=== PATIENT | female | born 1980 | race Caucasian/White ===

== ENCOUNTER 2018-11-30 02:46 | Inpatient (IN) | payer MEDICAID ==
[~2018-11-30] VITALS: Ht 162.6 cm; Wt 120.0 kg
[2018-11-30] MEDS ORDERED: ONDANSETRON 4 MG INJ IV ONE (03:33)
[2018-11-30] MEDS ORDERED: morphine 4 MG/ML VIAL IV ONE (03:33)
[2018-11-30] MEDS ORDERED: HYDR-4011 PO (04:59)
[2018-11-30] MEDS ORDERED: ONDA4TAB14 PO (04:59)
[2018-11-30] MEDS: ONDANSETRON 4 MG INJ IV ONE ×2 (05:12→07:13)
[2018-11-30] MEDS: morphine 4 MG/ML VIAL IV ONE ×2 (05:12→07:13)
[2018-11-30] MEDS ORDERED: SOD CHLORIDE 0.9% 1,000 ML IV ONE (05:30)
--- NOTE | 2018-11-30 05:42 | ERD ---
ER Documentation Chief Complaint Chief Complaint RUQ PAIN, S/P CHOLECYSTECTOMY; U/S YESTERDAY SHOWS STONES IN BILE DUCT HPI This is a 38-year-old female who presents for evaluation of right upper quadrant pain. Patient had a tonsillectomy about 11 years ago, yesterday she went to her outpatient physician and had an ultrasound that showed stones in the bile duct. She denies fever, endorses nausea, describes pain as sharp and intense. She has no shortness of breath ROS All systems reviewed and are negative except as per history of present illness. Medications Home Meds Reported Medications Hydrocodone/Acetaminophen ([place] 5-325 Tablet) 1 Each Tablet, 1 EACH PO DAILY NM N for PAIN LEVEL 1-5, TAB 11/30/18 Ondansetron (Ondansetron Odt) 4 Mg Tab.rapdis, 4 MG PO Q6H PRN for NAUSEA AND/OR VOMITING, TAB 11/30/18 Allergies Allergies: Coded Allergies: ketorolac (Verified Allergy, Unknown, 11/30/18) Uncoded Allergies: IV CONTRAST (Allergy, Unknown, 11/30/18) PMhx/Soc Medical and Surgical Hx: pt denies Medical Hx History of Surgery: Yes (GALLBLADDER REMOVAL, TUBAL LIGATION, OVARIAN TORSION) Anesthesia Reaction: No Hx Neurological Disorder: No Hx Respiratory Disorders: No Hx Cardiac Disorders: No Hx Psychiatric Problems: No Hx Miscellaneous Medical Probl: No Hx Alcohol Use: No Hx Substance Use: No Hx Tobacco Use: No Smoking Status: Never smoker Physical Exam Vitals Vital Signs Date Temp Pulse Resp B/P (MAP) Pulse Ox O2 O2 Flow FiO2 Time Delivery Rate 11/30/18 98.0 88 18 138/82 98 02:52 (100) Physical Exam Const: No acute distress Head: Atraumatic Eyes: Normal Conjunctiva ENT: Normal External Ears, Nose and Mouth. Neck: Full range of motion. No meningismus. Resp: Clear to auscultation bilaterally Cardio: Regular rate and rhythm, no murmurs Abd: Soft, tenderness over the right upper quadrant and epigastric area, there is no rebound or guarding, non distended. Normal bowel sounds Skin: No petechiae or rashes Back: No midline or flank tenderness Ext: No cyanosis, or edema Neur: Awake and alert Psych: Normal Mood and Affect Result Diagram: 11/30/18 0354 11/30/18 0354 Results 24 hrs Laboratory Tests Test 11/30/18 03:54 11/30/18 04:05 White Blood Count 9.3 10^3/ul Red Blood Count 4.22 10^6/ul Hemoglobin 11.7 g/dl Hematocrit 36.9 % Mean Corpuscular Volume 87.4 fl Mean Corpuscular Hemoglobin 27.7 pg Mean Corpuscular Hemoglobin Concent 31.7 g/dl Red Cell Distribution Width 14.6 % Platelet Count 363 10^3/UL Mean Platelet Volume 9.8 fl Immature Granulocytes % 0.300 % Neutrophils % 67.0 % Lymphocytes % 23.6 % Monocytes % 7.5 % Eosinophils % 1.1 % Basophils % 0.5 % Nucleated Red Blood Cells % 0.0 /100WBC Immature Granulocytes # 0.030 10^3/ul Neutrophils # 6.2 10^3/ul Lymphocytes # 2.2 10^3/ul Monocytes # 0.7 10^3/ul Eosinophils # 0.1 10^3/ul Basophils # 0.1 10^3/ul Nucleated Red Blood Cells # 0.0 10^3/ul Urine Color YELLOW Urine Clarity SLIGHTLY CLOUDY Urine pH 6.0 Urine Specific [place] 1.019 Urine Ketones NEGATIVE mg/dL Urine Nitrite NEGATIVE mg/dL Urine Bilirubin NEGATIVE mg/dL Urine Urobilinogen NEGATIVE mg/dL Urine Leukocyte Esterase NEGATIVE Brandon/ul Urine Microscopic RBC 0 /HPF Urine Microscopic WBC 1 /HPF Urine Squamous Epithelial Cells FEW /HPF Urine Mucus FEW /HPF Urine Hemoglobin NEGATIVE mg/dL Urine Glucose NEGATIVE mg/dL Urine Total Protein NEGATIVE mg/dl Sodium Level 145 mmol/L Potassium Level 3.7 mmol/L Chloride Level 109 mmol/L Carbon Dioxide Level 29 mmol/L Anion Gap 7 Blood Urea Nitrogen 8 mg/dl Creatinine 0.62 mg/dl Est Glomerular Filtrat Rate mL/min > 60 mL/min Glucose Level 115 mg/dl Calcium Level 9.3 mg/dl Total Bilirubin 0.4 mg/dl Direct Bilirubin 0.00 mg/dl Indirect Bilirubin 0.4 mg/dl Aspartate Amino Transf (AST/SGOT) 22 IU/L Alanine Aminotransferase (ALT/SGPT) 32 IU/L Alkaline Phosphatase 101 IU/L Total Protein 7.8 g/dl Albumin 4.2 g/dl Globulin 3.60 g/dl Albumin/Globulin Ratio 1.16 Lipase 1504 U/L POC Beta HCG, Qualitative NEGATIVE Current Medications Medications Dose Sig/Holli Start Time Status Last (Trade) Ordered Route PRN Stop Time Admin Dose Reason Admin Morphine 4 mg ONCE ONCE 11/30/18 DC 11/30/18 Sulfate IV 03:33 04:03 (morphine) 11/30/18 03:34 Ondansetron 4 mg ONCE ONCE 11/30/18 DC 11/30/18 HCl (Zofran IV 03:33 04:02 Inj) 11/30/18 03:34 Morphine 4 mg ONCE ONCE 11/30/18 DC Sulfate IV 05:03 (morphine) 11/30/18 05:04 Ondansetron 4 mg ONCE ONCE 11/30/18 DC HCl (Zofran IV 05:03 Inj) 11/30/18 05:04 Sodium 1,000 ml @ Q1H ONCE 11/30/18 Chloride 1,000 mls/hr IV 05:30 11/30/18 06:29 EKG: Rate/Rhythm: Normal Sinus Rhythm QRS, ST, T-waves: No changes consistent w/ acute ischemia Impression: No evidence of ischemia or arrhythmia Procedures/MDM This is a 38-year-old female presents for evaluation of epigastric pain. She is status post cholecystectomy, her lipase is returned significantly elevated in the 1500s, given her history of possible retained stone in the common bile duct, her pancreatitis may be related to biliary etiology. Patient was given pain control IV fluids in the ED, her work-up was overall unremarkable and had no other signs of infection. Patient will be admitted to [facility] Accepting Care Team: Current data and ongoing care discussed. Primary: Brant Consulting: adonay Outstanding Data: Ultrasound, CT abdomen pelvis Departure Diagnosis: Primary Impression: Abdominal pain Abdominal location: unspecified location Qualified Codes: R10.9 - Unspecified abdominal pain Condition: SUZETTE Meyer MD November 30, 2018 05:42
[2018-11-30] MEDS: SOD CHLORIDE 0.9% 1,000 ML IV SCH ×4 (06:06→23:09)
[2018-11-30] MEDS ORDERED: METOCLOPRAMIDE 10 MG INJ IV PRN (06:30)
[2018-11-30] MEDS ORDERED: ACETAMINOPHEN 325 MG TAB PO PRN (06:30)
[2018-11-30] MEDS ORDERED: BISACODYL (EC) 5 MG TAB PO PRN (06:30)
[2018-11-30] MEDS ORDERED: DOCUSATE SODIUM 100 MG CAP PO PRN (06:30)
[2018-11-30] MEDS ORDERED: NACL 0.9% 3 ML SYG IV SCH (06:30)
[2018-11-30] MEDS ORDERED: ONDANSETRON 4 MG INJ IV PRN (06:30)
[2018-11-30] MEDS ORDERED: HYDROmorphONE 0.5 MG/0.5 ML SYG IV PRN (06:30)
[2018-11-30] MEDS ORDERED: SINCALIDE 5 MCG INJ IV ONE (09:30)
--- NOTE | 2018-11-30 09:37 | HP ---
Date/Time of Note Date/Time of Note DATE: 11/30/18 TIME: 09:33 Assessment/Plan VTE Prophylaxis SCD applied (from Nsg): Yes Pharmacological prophylaxis: NA/contraindicated Pharm contraindication: low risk/ambulating Lines/Catheters IV Catheter Type (from Nrsg): Mid Line Assessment/Plan Hospital Course SUBJECTIVE: Patient endorses to 10 out of 10 pain in her right upper quadrant. She also complains of itching. OBJECTIVE: Vital signs-see below PHYSICAL EXAM: Constitutional: Adequately built,not in acute distress. HEENT: Head atraumatic and normocephalic. Eyes: Extraocular muscles intact. Anicteric sclerae. Pupils equal bilaterally, reactive to light. NECK: Supple without lymph node. CHEST: Clear and good breath sounds equally. No wheezing. No rhonchi. HEART: S1, S2. Regular rate and rhythm. ABDOMEN:+RUQ tenderness.no rebound. Soft, Bowel sounds were present. EXTREMITIES: No cyanosis, clubbing or edema. NEUROLOGIC: Alert and oriented x3. No focal deficit. No sensory deficit. PSYCHOSOCIAL: No signs of depression. INTEGUMENTARY: No open wounds. ASSESSMENT AND PLAN:38 yo obese F w/hx gallstone pancreatitis,s/p moy 2007 admitted w/RUQ abd pain found to have pancreatitis.. Pancreatitis -"Pt states she has bile stone and needs "ERCP'" -Normal LFTs. Patient is claustrophobic and refuses MRCP. Go ahead and obtain HIDA scan to assess entire biliary system. -GI consult -Bowel rest, IV fluids, pain control Obesity -A1c/Lipid panel -Weight reduction advised DVT prophylaxis: SCDs Rest of the management depend on hospital course. Approximately 60 m spent on this history and physical. Patient was seen in collaboration with Dr. Post. Result Diagram: 11/30/18 0354 11/30/18 0354 Results 24hrs Laboratory Tests Test 11/30/18 03:54 11/30/18 04:05 White Blood Count 9.3 Red Blood Count 4.22 Hemoglobin 11.7 L Hematocrit 36.9 L Mean Corpuscular Volume 87.4 Mean Corpuscular Hemoglobin 27.7 L Mean Corpuscular Hemoglobin Concent 31.7 L Red Cell Distribution Width 14.6 H Platelet Count 363 Mean Platelet Volume 9.8 Immature Granulocytes % 0.300 Neutrophils % 67.0 Lymphocytes % 23.6 Monocytes % 7.5 Eosinophils % 1.1 Basophils % 0.5 Nucleated Red Blood Cells % 0.0 Immature Granulocytes # 0.030 Neutrophils # 6.2 Lymphocytes # 2.2 Monocytes # 0.7 Eosinophils # 0.1 Basophils # 0.1 Nucleated Red Blood Cells # 0.0 Urine Color YELLOW Urine Clarity SLIGHTLY CLOUDY A Urine pH 6.0 Urine Specific [place] 1.019 Urine Ketones NEGATIVE Urine Nitrite NEGATIVE Urine Bilirubin NEGATIVE Urine Urobilinogen NEGATIVE Urine Leukocyte Esterase NEGATIVE Urine Microscopic RBC 0 Urine Microscopic WBC 1 Urine Squamous Epithelial Cells FEW Urine Mucus FEW A Urine Hemoglobin NEGATIVE Urine Glucose NEGATIVE Urine Total Protein NEGATIVE Sodium Level 145 H Potassium Level 3.7 Chloride Level 109 Carbon Dioxide Level 29 Anion Gap 7 Blood Urea Nitrogen 8 Creatinine 0.62 Est Glomerular Filtrat Rate mL/min > 60 Glucose Level 115 Calcium Level 9.3 Total Bilirubin 0.4 Direct Bilirubin 0.00 Indirect Bilirubin 0.4 Aspartate Amino Transf (AST/SGOT) 22 Alanine Aminotransferase (ALT/SGPT) 32 Alkaline Phosphatase 101 Total Protein 7.8 Albumin 4.2 Globulin 3.60 H Albumin/Globulin Ratio 1.16 Lipase 1504 H Ethyl Alcohol Level < 10.0 H POC Beta HCG, Qualitative NEGATIVE HPI/ROS Admit Date/Time Admit Date/Time November 30, 2018 at 05:31 Hx of Present Illness This is a 38-year-old obese female with a history of gallstone pancreatitis with in 2007, status post cholecystectomy, admitted with 1 week duration of right upper abdominal pain with mild nausea. Apparently patient went to a clinic where she had an ultrasound and was told patient had biliary stone needing ERCP for which she got admitted. Patient denied fever, chills, vomiting, diarrhea, constipation, dysuria, hematuria, chest pain, headache, dizziness, shortness of breath or other constitutional symptoms. Initial labs showed hemoglobin 11.7, hematocrit 36.9, lipase 1504. A CAT scan of the abdomen and pelvis showed no acute inflammatory process. She was given IV fluids, pain control and was admitted. ROS A 12 point review of system was assessed and is negative other than what is me ntioned in the HPI. PMH/Family/Social Past Medical History See HPI Medications Current Medications Sodium Chloride 1,000 ml @ 150 mls/hr Q6H40M IV Last administered on 11/30/18at 08:35; Admin Dose 150 MLS/HR; Start 11/30/18 at 06:06 IV Flush (NS 3 ml) 3 ml PER PROTOCOL IV ; Start 11/30/18 at 06:30 Ondansetron HCl (Zofran Inj) 4 mg Q4H PRN IV NAUSEA/VOMITING; Start 11/30/18 at 06:30 Metoclopramide HCl (Reglan) 10 mg Q6H PRN IV NAUSEA/VOMITING; Start 11/30/18 at 06:30 Acetaminophen (Tylenol Tab) 650 mg Q6H PRN PO .PAIN 1-3 OR TEMP; Start 11/30/18 at 06:30 Docusate Sodium (Colace) 100 mg Q12H PRN PO .CONSTIPATION; Start 11/30/18 at 06:30 Bisacodyl (Dulcolax) 5 mg DAILY PRN PO .CONSTIPATION; Start 11/30/18 at 06:30 Hydromorphone HCl (Dilaudid) 1 mg Q4H PRN IV .SEVERE PAIN 7-10; Start 11/30/18 at 10:30 Sincalide (Kinevac) 2.4 mcg NUCLEAR MED EXAM ONCE IV ; Start 11/30/18 at 09:30; Stop 11/30/18 at 09:31; Status UNV Diphenhydramine HCl (Benadryl) 25 mg Q6H PRN IV ITCHING; Start 11/30/18 at 09:30 Coded Allergies: Iodinated Contrast- Oral and IV Dye (Verified Allergy, Severe, 11/30/18) iodine (Verified Allergy, Intermediate, 11/30/18) ketorolac (Verified Allergy, Unknown, 11/30/18) morphine (Verified Adverse Reaction, Mild, 11/30/18) rash Uncoded Allergies: IV CONTRAST (Allergy, Unknown, 11/30/18) Past Surgical History See HPI Social History Denied history of alcohol, smoking or illicit drug use. Smoking Status: Never smoker Exam/Review of Systems Vital Signs Vitals Vital Signs Date Temp Pulse Resp B/P (MAP) Pulse Ox O2 O2 Flow FiO2 Time Delivery Rate 11/30/18 74 16 103/82 97 Room Air 07:46 (89) 11/30/18 98.1 06:25 COLLIN DUBOSE NP November 30, 2018 09:37
[2018-11-30] MEDS: DIPHENHYDRAMINE 50 MG INJ IV PRN ×3 (10:15→23:02)
[2018-11-30 10:44] VITALS: Ht 162.6 cm; Wt 120.0 kg
[2018-11-30] MEDS: HYDROmorphONE 0.5 MG/0.5 ML SYG IV PRN ×3 (12:38→20:35)
--- NOTE | 2018-11-30 14:02 | CONS ---
Assessment/Plan Assessment/Plan Assessment/Plan (Daily) Assessment: Acute pancreatitis -lipase 1504-no evidence of pancreatitis on CT HIDA scan negative for choledocholithiasis Right upper quadrant abdominal pain Nausea/vomiting Obesity History of cholecystectomy Plan: Keep n.p.o. Monitor lipase IV hydration Pain management Antiemetics Patient seen in collaboration with Dr. Saenz Consultation Date/Type/Reason Admit Date/Time November 30, 2018 at 05:31 Date of Consultation: November 30, 2018 Type of Consult GI Reason for Consultation Acute pancreatitis Date/Time of Note DATE: 11/30/18 TIME: 13:42 Hx of Present Illness This is a 38-year-old obese female with a history of gallstone pancreatitis 10 years ago post delivery with subsequent cholecystectomy who is now admitted for acute pancreatitis. Patient states her symptoms started 1 week ago with nausea, vomiting and right upper quadrant pain. Patient denies hematochezia, hematemesis, constipation, diarrhea or fever. Lipase on admission was 1504. HIDA scan shows no biliary obstruction. No pancreatitis on CT scan. LFTs are normal. Patient denies history of diabetes or drug use. Patient is requesting more pain medication and ERCP to be done. Explained the patient that there is no indication for ERCP at this time. We will continue bowel rest and IV h ydration. Monitor lipase. Order abdominal ultrasound. Genitourinary: no complaints (See HPI) Past Medical History Home Meds Reported Medications Hydrocodone/Acetaminophen ([employer] 5-325 Tablet) 1 Each Tablet, 1 EACH PO DAILY PRN for PAIN LEVEL 1-5, TAB 11/30/18 Ondansetron (Ondansetron Odt) 4 Mg Tab.rapdis, 4 MG PO Q6H PRN for NAUSEA AND/OR VOMITING, TAB 11/30/18 Medications Current Medications Sodium Chloride 1,000 ml @ 150 mls/hr Q6H40M IV Last administered on 11/30/18at 08:35; Admin Dose 150 MLS/HR; Start 11/30/18 at 06:06 IV Flush (NS 3 ml) 3 ml PER PROTOCOL IV ; Start 11/30/18 at 06:30 Ondansetron HCl (Zofran Inj) 4 mg Q4H PRN IV NAUSEA/VOMITING; Start 11/30/18 at 06:30 Metoclopramide HCl (Reglan) 10 mg Q6H PRN IV NAUSEA/VOMITING; Start 11/30/18 at 06:30 Acetaminophen (Tylenol Tab) 650 mg Q6H PRN PO .PAIN 1-3 OR TEMP; Start 11/30/18 at 06:30 Docusate Sodium (Colace) 100 mg Q12H PRN PO .CONSTIPATION; Start 11/30/18 at 06:30 Bisacodyl (Dulcolax) 5 mg DAILY PRN PO .CONSTIPATION; Start 11/30/18 at 06:30 Hydromorphone HCl (Dilaudid) 1 mg Q4H PRN IV .SEVERE PAIN 7-10 Last administered on 11/30/18at 12:38; Admin Dose 1 MG; Start 11/30/18 at 10:30 Diphenhydramine HCl (Benadryl) 25 mg Q6H PRN IV ITCHING Last administered on 11/30/18at 10:15; Admin Dose 25 MG; Start 11/30/18 at 09:30 Allergies: Coded Allergies: Iodinated Contrast- Oral and IV Dye (Verified Allergy, Severe, 11/30/18) iodine (Verified Allergy, Intermediate, 11/30/18) ketorolac (Verified Allergy, Unknown, 11/30/18) morphine (Verified Adverse Reaction, Mild, 11/30/18) rash Uncoded Allergies: IV CONTRAST (Allergy, Unknown, 11/30/18) Past Surgical History Past Surgical Hx: cholecystectomy Social History Alcohol Use: none Smoking Status: Never smoker Exam/Review of Systems Exam Vitals Vital Signs Date Temp Pulse Resp B/P (MAP) Pulse Ox O2 O2 Flow FiO2 Time Delivery Rate 11/30/18 74 16 103/82 97 Room Air 07:46 (89) 11/30/18 98.1 06:25 Exam PHYSICAL EXAMINATION: GENERAL: Well developed, obese, well nourished, alert & oriented x 3, in no acute distress SKIN: No lesions, no stigmata chronic liver disease, no evidence of bleeding diathesis LYMPHATIC: No palpable lymphadenopathy. HEAD: Normocephalic, atraumatic, no tenderness. EYES: Pupils equal reactive to light and accommodation, full extraocular movements, sclera clear, non-icteric, no discharge. EARS/NOSE AND THROAT: Ears normal, nose normal, oropharynx normal, oral membranes well hydrated without lesions. NECK: Supple, no masses, thyroid normal, JVP within normal limits, carotids normal without bruits. CHEST: Inspection within normal limits. CARDIOVASCULAR: Heart: Regular rate and rhythm, no murmurs, gallops or rubs. Peripheral pulses present within normal limits, no cyanosis, clubbing or edemas. No pulsatile abdominal mass RESPIRATORY: Lungs clear to auscultation and percussion, no wheezing, no rubs GASTROINTESTINAL AND LIVER: Abdomen: Soft, right upper quadrant tenderness, non- distended, no hernias, no masses, no organomegaly, no ascites, no guarding, no rebound tenderness, normoactive bowel sounds. Rectal: Deferred. GENITOURINARY: Female genitalia within normal limits. EXTREMITIES: No cyanosis, clubbing or edema. Results Result Diagram: 11/30/18 0354 11/30/18 0354 Results 24hrs Laboratory Tests Test 11/30/18 03:54 11/30/18 04:05 White Blood Count 9.3 Red Blood Count 4.22 Hemoglobin 11.7 L Hematocrit 36.9 L Mean Corpuscular Volume 87.4 Mean Corpuscular Hemoglobin 27.7 L Mean Corpuscular Hemoglobin Concent 31.7 L Red Cell Distribution Width 14.6 H Platelet Count 363 Mean Platelet Volume 9.8 Immature Granulocytes % 0.300 Neutrophils % 67.0 Lymphocytes % 23.6 Monocytes % 7.5 Eosinophils % 1.1 Basophils % 0.5 Nucleated Red Blood Cells % 0.0 Immature Granulocytes # 0.030 Neutrophils # 6.2 Lymphocytes # 2.2 Monocytes # 0.7 Eosinophils # 0.1 Basophils # 0.1 Nucleated Red Blood Cells # 0.0 Urine Color YELLOW Urine Clarity SLIGHTLY CLOUDY A Urine pH 6.0 Urine Specific [place] 1.019 Urine Ketones NEGATIVE Urine Nitrite NEGATIVE Urine Bilirubin NEGATIVE Urine Urobilinogen NEGATIVE Urine Leukocyte Esterase NEGATIVE Urine Microscopic RBC 0 Urine Microscopic WBC 1 Urine Squamous Epithelial Cells FEW Urine Mucus FEW A Urine Hemoglobin NEGATIVE Urine Glucose NEGATIVE Urine Total Protein NEGATIVE Sodium Level 145 H Potassium Level 3.7 Chloride Level 109 Carbon Dioxide Level 29 Anion Gap 7 Blood Urea Nitrogen 8 Creatinine 0.62 Est Glomerular Filtrat Rate mL/min > 60 Glucose Level 115 Calcium Level 9.3 Total Bilirubin 0.4 Direct Bilirubin 0.00 Indirect Bilirubin 0.4 Aspartate Amino Transf (AST/SGOT) 22 Alanine Aminotransferase (ALT/SGPT) 32 Alkaline Phosphatase 101 Total Protein 7.8 Albumin 4.2 Globulin 3.60 H Albumin/Globulin Ratio 1.16 Lipase 1504 H Ethyl Alcohol Level < 10.0 H POC Beta HCG, Qualitative NEGATIVE Medications Medication Current Medications Sodium Chloride 1,000 ml @ 150 mls/hr Q6H40M IV Last administered on 11/30/18at 08:35; Admin Dose 150 MLS/HR; Start 11/30/18 at 06:06 IV Flush (NS 3 ml) 3 ml PER PROTOCOL IV ; Start 11/30/18 at 06:30 Ondansetron HCl (Zofran Inj) 4 mg Q4H PRN IV NAUSEA/VOMITING; Start 11/30/18 at 06:30 Metoclopramide HCl (Reglan) 10 mg Q6H PRN IV NAUSEA/VOMITING; Start 11/30/18 at 06:30 Acetaminophen (Tylenol Tab) 650 mg Q6H PRN PO .PAIN 1-3 OR TEMP; Start 11/30/18 at 06:30 Docusate Sodium (Colace) 100 mg Q12H PRN PO .CONSTIPATION; Start 11/30/18 at 06:30 Bisacodyl (Dulcolax) 5 mg DAILY PRN PO .CONSTIPATION; Start 11/30/18 at 06:30 Hydromorphone HCl (Dilaudid) 1 mg Q4H PRN IV .SEVERE PAIN 7-10 Last administered on 11/30/18at 12:38; Admin Dose 1 MG; Start 11/30/18 at 10:30 Diphenhydramine HCl (Benadryl) 25 mg Q6H PRN IV ITCHING Last administered on 11/30/18at 10:15; Admin Dose 25 MG; Start 11/30/18 at 09:30 JANIE FLOWERS NP November 30, 2018 14:01
--- NOTE | 2018-11-30 14:20 | RADRPT ---
SANTIAGO HOWE :1980 Sex:F Status: RECONFIRMED ACC:[id number] Exam DATE:2018-11-30 03:53:54 Vent Rate: 74 bpm RR Interval: 0 msec MT Interval: 132 msec QRS Duration: 78 msec QT Interval: 394 msec QTC Interval: 437 msec P-R-T [place]rell: 36 - 39 - 41 degrees Normal sinus rhythm Normal ECG Electronically Signed By: [facility]
[2018-11-30 19:50] VITALS: BP 106/55; RESP 20
[2018-12-01] MEDS: HYDROmorphONE 0.5 MG/0.5 ML SYG IV PRN ×3 (00:29→08:53)
[2018-12-01] MEDS ORDERED: DIPHENHYDRAMINE 50 MG INJ IV PRN ×2 (01:00→05:00)
[2018-12-01 02:30] VITALS: BP 124/75; PULSE 68; RESP 20
[2018-12-01] MEDS: SOD CHLORIDE 0.9% 1,000 ML IV SCH (05:25)
[2018-12-01 07:36] VITALS: BP 127/61; PULSE 85; RESP 14
[2018-12-01] MEDS ORDERED: POTASSIUM CHLORIDE (SR) 20 MEQ TAB PO STA (09:02)
--- NOTE | 2018-12-01 09:05 | PDOCDIS ---
Discharge Instructions CONDITION [id number] Patient Condition: [id number] Stable HOME CARE INSTRUCTIONS: [id number] Diet Instructions: [id number] Regular FOLLOW UP/APPOINTMENTS Follow-up Plan follow up with primary care doctor in 1 week COLLIN DUBOSE NP December 01, 2018 09:05
--- NOTE | 2018-12-01 09:10 | DS ---
Date/Time of Note Date/Time of Note DATE: 12/01/18 TIME: 09:08 Discharge Summary Admission/Discharge Info Admit Date/Time November 30, 2018 at 05:31 Discharge Date/Time Discharge Diagnosis Pancreatitis.Resolved Obesity Patient Condition: Stable Procedures 11/30/2018: HIDA scan IMPRESSION: 1. No definite scintigraphic evidence to suggest the presence of a common bile duct obstruction. 2. Surgically absent gallbladder. 11/30/2018: CT abdomen and pelvis. IMPRESSION: 1. Benign postsurgical changes. 2. No focal acute inflammatory process. Hx of Present Illness This is a 38-year-old obese female with a history of gallstone pancreatitis with in 2007, status post cholecystectomy, admitted with 1 week duration of right upper abdominal pain with mild nausea. Apparently patient went to a clinic where she had an ultrasound and was told patient had biliary stone needing ERCP for which she got admitted. Patient denied fever, chills, vomiting, diarrhea, constipation, dysuria, hematuria, chest pain, headache, dizziness, shortness of breath or other constitutional symptoms. Initial labs showed hemoglobin 11.7, hematocrit 36.9, lipase 1504. A CAT scan of the abdomen and pelvis showed no acute inflammatory process. She was given IV fluids, pain control and was admitted. Hospital Course 38 yo obese F w/hx gallstone pancreatitis,s/p moy 2007 admitted w/RUQ abd pain found to have pancreatitis.. She had extensive work-up, negative for biliary etiology of pancreatitis. HIDA scan/CT scan was negative. Lipase trended down. Patient was able to tolerate diet. Her abdominal pain resolved completely. At this time, no further inpatient work-up indicated and patient is medically stable for outpatient follow-up. Patient was counseled on weight reduction. Her A1c and lipid panel within acceptable range. Approximately 60 m spent on coordinating the discharge on this patient. Patient was seen in collaboration with Dr. Wright. Home Meds Reported Medications Hydrocodone/Acetaminophen ([place] 5-325 Tablet) 1 Each Tablet, 1 EACH PO DAILY PRN for PAIN LEVEL 1-5, TAB 11/30/18 Ondansetron (Ondansetron Odt) 4 Mg Tab.rapdis, 4 MG PO Q6H PRN for NAUSEA AND/OR VOMITING, TAB 11/30/18 Follow-up Plan follow up with primary care doctor in 1 week Primary Care Provider Care Physician No Primary Pending Labs Laboratory Tests Test 11/30/18 16:20 12/01/18 04:40 Urine Opiates Screen Positive (NEGATIVE) Urine Barbiturates Negative (NEGATIVE) Urine Amphetamines Screen Negative (NEGATIVE) Urine Benzodiazepines Screen Negative (NEGATIVE) Urine Cocaine Screen Negative (NEGATIVE) Urine Cannabinoids Negative (NEGATIVE) White Blood Count 7.3 10^3/ul (4.8-10.8) Red Blood Count 3.80 10^6/ul (4.20-5.40) Hemoglobin 10.6 g/dl (12.0-16.0) Hematocrit 33.4 % (37.0-47.0) Mean Corpuscular Volume 87.9 fl (82.0-101.0) Mean Corpuscular Hemoglobin 27.9 pg (29.0-33.0) Mean Corpuscular 31.7 g/dl (32.0-37.0) Hemoglobin Concent Red Cell Distribution Width 14.2 % (11.5-14.5) Platelet Count 316 10^3/UL (140-415) Mean Platelet Volume 9.4 fl (7.4-10.4) Immature Granulocytes % 0.400 % (0.001-0.429) Neutrophils % 61.5 % (39.0-77.0) Lymphocytes % 27.9 % (15.0-51.0) Monocytes % 6.7 % (0.0-11.0) Eosinophils % 2.8 % (0.0-7.0) Basophils % 0.7 % (0.0-2.0) Nucleated Red Blood Cells % 0.0 /100WBC (0.0-0.0) Immature Granulocytes # 0.030 10^3/ul (0.0-0.031) Neutrophils # 4.5 10^3/ul (1.6-7.5) Lymphocytes # 2.0 10^3/ul (0.8-2.9) Monocytes # 0.5 10^3/ul (0.3-0.9) Eosinophils # 0.2 10^3/ul (0.0-0.5) Basophils # 0.1 10^3/ul (0.0-0.1) Nucleated Red Blood Cells # 0.0 10^3/ul (0.0-0.0) Sodium Level 138 mmol/L (135-144) Potassium Level 3.3 mmol/L (3.5-5.1) Chloride Level 108 mmol/L (97-110) Carbon Dioxide Level 23 mmol/L (21-31) Anion Gap 7 (5-13) Blood Urea Nitrogen 8 mg/dl (7-20) Creatinine 0.60 mg/dl (0.44-1.00) Est Glomerular Filtrat > 60 mL/min (>60) Rate mL/min Glucose Level 88 mg/dl (70-220) Hemoglobin A1c 5.3 % (0-5.9) Calcium Level 8.1 mg/dl (8.4-10.2) Magnesium Level 1.7 mg/dl (1.7-2.5) Total Bilirubin 0.6 mg/dl (0.2-1.3) Direct Bilirubin 0.00 mg/dl (0.00-0.20) Indirect Bilirubin 0.6 mg/dl (0-1.1) Aspartate Amino 25 IU/L (15-46) Transf (AST/SGOT) Alanine 32 IU/L (13-69) Aminotransferase (ALT/SGPT) Alkaline Phosphatase 90 IU/L (42-121) Total Protein 6.6 g/dl (6.1-8.1) Albumin 3.7 g/dl (3.3-4.9) Globulin 2.90 g/dl (1.3-3.2) Albumin/Globulin Ratio 1.27 Triglycerides Level 104 mg/dl (0-149) Cholesterol Level 172 mg/dl (100-200) LDL Cholesterol, Calculated 97 mg/dl HDL Cholesterol 54 mg/dl (34-82) Cholesterol/HDL Ratio 3.1 RATIO Lipase 399 U/L (23-300) Thyroid Stimulating 3.720 MIU/L (0.465-4.680) Hormone (TSH) COLLIN DUBOSE NP December 01, 2018 09:10
== END 2018-12-01 09:40 | disposition home or self-care (01) | DRG 439 ==
LOC: E/R 02:46 → MS1 05:31
PROVIDERS: ADMIT Family Medicine; ATTEND Family Medicine
DX: K85.90 Acute pancreatitis without necrosis or infection, unspecified (principal); Z68.42 Body mass index [BMI] 45.0-49.9, adult; E66.9 Obesity, unspecified
CPT/HCPCS: 36415; 74176; 78226; 80053; 80061; 80307; 81001; 81003; 81025; 83036; 83690; 83735; 84443; 85025; 93005; 96374; 96375; A9537; J1170; J1200; J2270; J2405; J2805; J7030

== ENCOUNTER 2018-12-11 16:08 | Inpatient (IN) | payer MEDICAID ==
[~2018-12-11] VITALS: Ht 162.6 cm; Wt 119.8 kg
[2018-12-11] MEDS ORDERED: SOD CHLORIDE 0.9% 1,000 ML IV STA (16:55)
[2018-12-11] MEDS ORDERED: ONDANSETRON 4 MG INJ IV STA (16:55)
[2018-12-11] MEDS ORDERED: morphine 2 MG INJ IV STA (16:55)
--- NOTE | 2018-12-11 17:04 | ERD ---
ER Documentation Chief Complaint Chief Complaint appe beulah monday, today vomiting, pain at the site HPI 39-year-old female presenting to the emergency department complaining of right lower quadrant pain for the past 3 days status post appendectomy. She states current pain is rated 9/10 in severity and is constant. She took Tylenol at home without significant relief. Additionally she reports 4 episodes of nonbilious and nonbloody vomiting today. She denies any fevers, chills, or other symptoms at this time. ROS All systems reviewed and are negative except as per history of present illness. Medications Home Meds No Active Prescriptions or Reported Meds Allergies Allergies: Coded Allergies: iodine (Verified Allergy, Intermediate, 11/30/18) ketorolac (Verified Allergy, Unknown, 11/30/18) metoclopramide (Verified Adverse Reaction, Intermediate, 12/01/18) morphine (Verified Adverse Reaction, Mild, 11/30/18) rash Uncoded Allergies: iodinated iv dye contrast (Allergy, Severe, 12/12/18) IV CONTRAST (Allergy, Unknown, 11/30/18) PMhx/Soc History of Surgery: Yes Anesthesia Reaction: No Hx Neurological Disorder: No Hx Respiratory Disorders: No Hx Cardiac Disorders: No Hx Psychiatric Problems: No Hx Miscellaneous Medical Probl: No Hx Alcohol Use: No Hx Substance Use: No Hx Tobacco Use: No Smoking Status: Never smoker FmHx Family History: No diabetes Physical Exam Vitals Vital Signs Date Temp Pulse Resp B/P (MAP) Pulse Ox O2 O2 Flow FiO2 Time Delivery Rate 12/11/18 97.8 90 20 116/58 96 19:29 (77) 12/11/18 98.8 96 18 154/67 99 16:14 (96) Physical Exam Const: No acute distress Head: Atraumatic Eyes: Normal Conjunctiva ENT: Normal External Ears, Nose and Mouth. Neck: Full range of motion. No meningismus. Resp: Clear to auscultation bilaterally Cardio: Regular rate and rhythm, no murmurs Abd: Morbidly obese abdomen, soft, significant tenderness palpation of the right lower quadrant with rebound tenderness, no abdominal ecchymosis, non distended. Normal bowel sounds. Healing laparoscopic incision sites noted to the abdomen clean dry and intact without drainage or erythema.. Skin: No petechiae or rashes Ext: No cyanosis, or edema Neur: Awake and alert Psych: Normal Mood and Affect Result Diagram: 12/12/18 0436 12/12/18 0435 Results 24 hrs Laboratory Tests Test 12/11/18 17:24 12/11/18 19:51 White Blood Count 10.0 10^3/ul Red Blood Count 3.98 10^6/ul Hemoglobin 11.0 g/dl Hematocrit 34.6 % Mean Corpuscular Volume 86.9 fl Mean Corpuscular Hemoglobin 27.6 pg Mean Corpuscular Hemoglobin Concent 31.8 g/dl Red Cell Distribution Width 14.5 % Platelet Count 402 10^3/UL Mean Platelet Volume 9.3 fl Immature Granulocytes % 0.400 % Neutrophils % 74.6 % Lymphocytes % 15.5 % Monocytes % 6.9 % Eosinophils % 2.0 % Basophils % 0.6 % Nucleated Red Blood Cells % 0.0 /100WBC Immature Granulocytes # 0.040 10^3/ul Neutrophils # 7.5 10^3/ul Lymphocytes # 1.6 10^3/ul Monocytes # 0.7 10^3/ul Eosinophils # 0.2 10^3/ul Basophils # 0.1 10^3/ul Nucleated Red Blood Cells # 0.0 10^3/ul Prothrombin Time 12.3 Sec Prothrombin Time Ratio 1.0 INR International Normalized Ratio 0.90 Activated Partial Thromboplast Time 26.0 Sec Urine Color STRAW Urine Clarity CLEAR Urine pH 7.0 Urine Specific [place] 1.006 Urine Ketones NEGATIVE mg/dL Urine Nitrite NEGATIVE mg/dL Urine Bilirubin NEGATIVE mg/dL Urine Urobilinogen NEGATIVE mg/dL Urine Leukocyte Esterase NEGATIVE [place]/ul Urine Hemoglobin NEGATIVE mg/dL Urine Glucose NEGATIVE mg/dL Urine Total Protein NEGATIVE mg/dl Sodium Level 138 mmol/L Potassium Level 4.3 mmol/L Chloride Level 105 mmol/L Carbon Dioxide Level 25 mmol/L Anion Gap 8 Blood Urea Nitrogen 8 mg/dl Creatinine 0.67 mg/dl Est Glomerular Filtrat Rate mL/min > 60 mL/min Glucose Level 108 mg/dl Calcium Level 9.0 mg/dl Total Bilirubin 0.3 mg/dl Direct Bilirubin 0.00 mg/dl Indirect Bilirubin 0.3 mg/dl Aspartate Amino Transf (AST/SGOT) 22 IU/L Alanine Aminotransferase (ALT/SGPT) 24 IU/L Alkaline Phosphatase 90 IU/L Total Protein 7.7 g/dl Albumin 4.1 g/dl Globulin 3.60 g/dl Albumin/Globulin Ratio 1.13 Lipase 80 U/L POC Beta HCG, Qualitative NEGATIVE Current Medications Medications Dose Sig/Holli Start Time Status Last (Trade) Ordered Route PRN Stop Time Admin Dose Reason Admin Sodium 1,000 ml @ Q1H STAT 12/11/18 DC 12/11/18 Chloride 1,000 mls/hr IV 16:55 17:22 12/11/18 17:54 Morphine 2 mg ONCE STAT 12/11/18 DC 12/11/18 Sulfate IV 16:55 17:26 (morphine) 12/11/18 16:57 Ondansetron 4 mg ONCE STAT 12/11/18 DC 12/11/18 HCl (Zofran IV 16:55 17:22 Inj) 12/11/18 16:57 0.5 mg ONCE STAT 12/11/18 DC 12/11/18 Hydromorphone IV 19:04 19:20 HCl 12/11/18 19:05 (Dilaudid) 25 mg ONCE ONCE 12/11/18 DC 12/11/18 Diphenhydrami IV 19:30 20:07 ne HCl 12/11/18 19:31 (Benadryl) 1 mg ONCE STAT 12/11/18 DC 12/11/18 Hydromorphone IV 20:20 20:59 HCl 12/11/18 20:21 (Dilaudid) Procedures/MDM 39-year-old female presented to the emergency department complaining of severe right lower quadrant pain after appendectomy [address] abdomen and pelvis revealed small fluid collection in the right lower quadrant. Full report interpreted by the radiologist may be viewed above. The patient was administered multiple doses of analgesics medication IV and IV Zofran in the department with good response. On reevaluation she was somewhat improved, but still had significant pain. CBC: no e/o of systemic infection or severe anemia CMP: no e/o severe acidosis, alkalosis, renal failure, diabetic ketoacidosis, liver disease Lipase: no e/o pancreatitis PT/INR: normal coagulation Urine: no e/o acute infection or hematuria Medical decision making: Patient symptoms are likely secondary to postoperative fluid collection which may be a seroma versus abscess. Much lower suspicion for acute surgical abdomen, intra-abdominal hemorrhage, or other emergencies. Attending addendum: Patient's case was presented to me by the PA. I went to bedside to evaluate the patient and agree with the above exam and findings. Patient's incisions look like they are healing well. However she does have significant abdominal tenderness on exam. I reviewed her imaging and her labs. I spoke with the surgeon on-call, , who recommended starting antibiotics and admitting the patient for observation and serial exams. Patient is agreeable with this plan. She was started on IV antibiotics. I spoke with Dr. Guo, the hospitalist, will be admitting the patient to [facility]. Departure Diagnosis: Primary Impression: Postoperative complication Surgical complication system/body Area: digestive system Surgical complication type: other Qualified Codes: K91.89 - Other postprocedural complications and disorders of digestive system Additional Impression: Status post appendectomy Condition: Serious Patient Instructions: Post Op Wound Check, Pain ODETTE GUTIERREZ PA-C December 11, 2018 17:04 RASHI JACK MD December 12, 2018 10:44
[2018-12-11] MEDS ORDERED: HYDROmorphONE 0.5 MG/0.5 ML SYG IV STA ×2 (19:04→23:10)
[2018-12-11] MEDS ORDERED: DIPHENHYDRAMINE 50 MG INJ IV ONE (19:30)
[2018-12-11] MEDS ORDERED: HYDROmorphONE 2 MG/ML SYG IV STA (20:20)
[2018-12-11] MEDS ORDERED: PIPER-TAZO 3.375 GM IV (PMX) 100 ML IVPB STA (20:26)
[2018-12-11] MEDS ORDERED: ONDANSETRON 4 MG INJ IV PRN (20:30)
[2018-12-11] MEDS ORDERED: ACETAMINOPHEN 325 MG TAB PO PRN ×2 (20:30→22:30)
[2018-12-11] MEDS: SOD CHLORIDE 0.9% 1,000 ML IV SCH (22:03)
--- NOTE | 2018-12-11 22:03 | HP ---
Date/Time of Note Date/Time of Note DATE: 12/11/18 TIME: 22:03 Assessment/Plan VTE Prophylaxis SCD applied (from Nsg): Yes Pharmacological prophylaxis: NA/contraindicated Pharm contraindication: low risk/ambulating Lines/Catheters IV Catheter Type (from Nrsg): Saline Lock Assessment/Plan Hospital Course This is a 39 -year-old female being admitted to the [facility] floor for: #1 Postop complication/infection: Patient is status post appendectomy. CT showed: New inflammatory changes in the surgical bed status post appendectomy along with a 1.6 cm fluid collection. This is not amenable to percutaneous drainage. New phlegmonous changes in the mid anterior abdominal wall to the left of the umbilicus. At the current time we will treat medically with pain management, Zosyn 3.375 every 6 hours. of general surgery has already been consulted by the emergency department. Will await further recommendations. We will keep the patient n.p.o. except meds, IV fluid hydration pain management. Patient is currently afebrile. Culture results pending #2 morbid obesity: We will check hemoglobin A 1C, lipid panel, TSH #3 DVT GI prophylaxis: SCDs, no GI prophylaxis indicated Further treatment strategy will be implemented as per the clinical course Result Diagram: 12/11/18 1724 12/11/18 1724 Results 24hrs Laboratory Tests Test 12/11/18 17:24 12/11/18 19:51 White Blood Count 10.0 # Red Blood Count 3.98 L Hemoglobin 11.0 L Hematocrit 34.6 L Mean Corpuscular Volume 86.9 Mean Corpuscular Hemoglobin 27.6 L Mean Corpuscular Hemoglobin Concent 31.8 L Red Cell Distribution Width 14.5 Platelet Count 402 # Mean Platelet Volume 9.3 Immature Granulocytes % 0.400 Neutrophils % 74.6 Lymphocytes % 15.5 Monocytes % 6.9 Eosinophils % 2.0 Basophils % 0.6 Nucleated Red Blood Cells % 0.0 Immature Granulocytes # 0.040 H Neutrophils # 7.5 Lymphocytes # 1.6 Monocytes # 0.7 Eosinophils # 0.2 Basophils # 0.1 Nucleated Red Blood Cells # 0.0 Prothrombin Time 12.3 Prothrombin Time Ratio 1.0 INR International Normalized Ratio 0.90 Activated Partial Thromboplast Time 26.0 Urine Color STRAW Urine Clarity CLEAR Urine pH 7.0 Urine Specific [place] 1.006 Urine Ketones NEGATIVE Urine Nitrite NEGATIVE Urine Bilirubin NEGATIVE Urine Urobilinogen NEGATIVE Urine Leukocyte Esterase NEGATIVE Urine Hemoglobin NEGATIVE Urine Glucose NEGATIVE Urine Total Protein NEGATIVE Sodium Level 138 Potassium Level 4.3 Chloride Level 105 Carbon Dioxide Level 25 Anion Gap 8 Blood Urea Nitrogen 8 Creatinine 0.67 Est Glomerular Filtrat Rate mL/min > 60 Glucose Level 108 Calcium Level 9.0 Total Bilirubin 0.3 Direct Bilirubin 0.00 Indirect Bilirubin 0.3 Aspartate Amino Transf (AST/SGOT) 22 Alanine Aminotransferase (ALT/SGPT) 24 Alkaline Phosphatase 90 Total Protein 7.7 Albumin 4.1 Globulin 3.60 H Albumin/Globulin Ratio 1.13 Lipase 80 POC Beta HCG, Qualitative NEGATIVE HPI/ROS Admit Date/Time Admit Date/Time Hx of Present Illness Chief complaint: Abdominal pain 39-year-old female presenting to the emergency department complaining of right lower quadrant pain for the past 3 days status post appendectomy. Patient reports that she was in n.p.o. 3 days ago and had a lap appendectomy. She states current pain is rated 9/10 in severity and is constant. She took Tylenol at home without significant relief. Additionally she reports 4 episodes of nonbilious and nonbloody vomiting today. She denies any fevers, chills, or other symptoms at this time. Allergies: IV and oral contrast, iodine, Toradol, Reglan, morphine Medications: None ROS Const: As per HPI Eyes : No pain discharge or redness or change in visual acuity ENT: No pain, sore throat, congestion, congestion, dysphagia or discharge Respiratory: No shortness of breath, cough, sputum, wheezing, or pleuritic pain Cardiovascular: No chest pain, palpitation, PND, or edema GI : no change in appetite, abdominal pain, nausea, vomiting, diarrhea, constipation, or change in the color his stool Genitourinary: As per HPI Musculoskeletal: No joint pain, back pain, neck pain, restricted range of motion in neck or joints Skin: No rash, bruising or hives Neuro: No headache, dizziness, syncope, seizure, focal weakness Endocrine: No polyuria, polydipsia, temperature intolerance Psych: No hallucination, depression, anxiety or suicidal ideation PMH/Family/Social Past Medical History Medications Current Medications Ondansetron HCl (Zofran Inj) 4 mg BRIDGE ORDER PRN IV NAUSEA/VOMITING; Start 12/11/18 at 20:30; Stop 12/12/18 at 20:29 Acetaminophen (Tylenol Tab) 650 mg ER BRIDGE PRN PO .MILD PAIN 1-3 OR TEMP; Start 12/11/18 at 20:30; Stop 12/12/18 at 20:29 Coded Allergies: iodine (Verified Allergy, Intermediate, 11/30/18) ketorolac (Verified Allergy, Unknown, 11/30/18) metoclopramide (Verified Adverse Reaction, Intermediate, 12/01/18) morphine (Verified Adverse Reaction, Mild, 11/30/18) rash Uncoded Allergies: iodinated iv dye contrast (Allergy, Severe, 12/12/18) IV CONTRAST (Allergy, Unknown, 11/30/18) Past Surgical History Appendectomy, cholecystectomy, tubal ligation Past Surgical Hx: cholecystectomy Family History Significant Family History: no pertinent family hx Social History Alcohol Use: none Smoking Status: Never smoker Drug Use: none Exam/Review of Systems Vital Signs Vitals Vital Signs Date Temp Pulse Resp B/P (MAP) Pulse Ox O2 O2 Flow FiO2 Time Delivery Rate 12/11/18 97.8 90 20 116/58 96 19:29 (77) Exam Exam General: Patient is a pleasant female currently lying in bed in no acute distress HEENT: Atraumatic, normocephalic. The pupils are equal, round and reactive. Extraocular motor are intact Neck: Supple with full range of motion. No rigidity or meningismus Chest: Nontender Lungs: Clear to auscultation bilaterally no crackles rales or wheezing Heart: Normal S1-S2, Regular rhythm and rate. No murmur, S3, or S4 Abdomen: Morbidly obese, soft, generalized tenderness palpation over the lower abdominal area, no rebound or guarding, normal bowel sounds Extremities: Normal to inspection, no edema no cyanosis Neurologic: Normal mental status, speech normal, cranial nerves II through XII are intact, motor and sensory are intact, Additional Comments PROCEDURE: CT abdomen and pelvis without contrast CLINICAL INDICATION: abdominal pain TECHNIQUE: CT scan of the abdomen and pelvis without contrast was performed on a multislice CT scanner. 3-D sagittal and coronal reformatted images were obtained from the axial source images. Oral contrast was given. DICOM images are available. One or more of the following post reduction techniques were used: - Automated exposure control. - Adjustment of the mA and/or Kv according to patient's size. - Use of iterative reconstruction technique DLP 1542 mGycm CTDIvol 24 mGy COMPARISON: 11/30/2018 FINDINGS: Visualized lung bases: Unremarkable Liver: Unremarkable Gallbladder: The gallbladder is surgically absent. Spleen: Unremarkable Pancreas: Unremarkable Adrenal glands: Unremarkable Kidneys: Unremarkable GI Tract: Postsurgical changes in the right lower quadrant with new mesenteric fat stranding and free fluid when compared to scan from 11/30/2018. In addition, there is a 1.6 x 1.6 cm fluid collection in this area (601:55). Vasculature: Unremarkable Lymphadenopathy: Absent Peritoneal cavity: No ascites Bladder: Unremarkable Reproductive organs: Unremarkable Bones: Unremarkable Extraperitoneal soft tissues: New phlegmonous changes in the mid anterior abdominal wall to the left of the umbilicus. Lines/drains/medical devices: None IMPRESSION: New inflammatory changes in the surgical bed status post appendectomy along with a 1.6 cm fluid collection. This is not amenable to percutaneous drainage. New phlegmonous changes in the mid anterior abdominal wall to the left of the umbilicus. RPTAT: AA Physician Rita Date Time Electronically viewed and signed by Physician Rita on 12/11/2018 18:55 RB/ CC: ODETTE GUTIERREZ PA-C [id number] JESSI DOWNS December 11, 2018 22:03
[2018-12-11] MEDS ORDERED: BISACODYL (EC) 5 MG TAB PO PRN (22:30)
[2018-12-11] MEDS ORDERED: NACL 0.9% 3 ML SYG IV SCH (22:30)
[2018-12-11] MEDS ORDERED: DOCUSATE SODIUM 100 MG CAP PO PRN (22:30)
[2018-12-11] MEDS ORDERED: morphine 2 MG INJ IV PRN (22:30)
[2018-12-12] MEDS ORDERED: HYDROmorphONE 1 MG/ML SYG IV ONE (00:19)
[2018-12-12 01:39] VITALS: Ht 162.6 cm; Wt 119.8 kg
[2018-12-12 01:53] VITALS: BP 133/80; PULSE 87; RESP 18
[2018-12-12] MEDS ORDERED: HYDROmorphONE 0.5 MG/0.5 ML SYG IV PRN (02:00)
[2018-12-12] MEDS: PIPER-TAZO 3.375 GM IV (PMX) 100 ML IVPB SCH ×4 (02:13→17:59)
[2018-12-12] MEDS: SOD CHLORIDE 0.9% 1,000 ML IV SCH ×2 (02:13→15:17)
[2018-12-12] MEDS ORDERED: DIPHENHYDRAMINE 50 MG INJ IV PRN (03:00)
[2018-12-12] MEDS: DIPHENHYDRAMINE 50 MG INJ IV PRN ×5 (03:17→22:05)
[2018-12-12] MEDS: HYDROmorphONE 1 MG/ML SYG IV PRN ×6 (06:41→22:46)
[2018-12-12 07:27] VITALS: BP 101/50; PULSE 68; RESP 17
--- NOTE | 2018-12-12 11:04 | CONS ---
Assessment/Plan Assessment/Plan Assessment/Plan (Daily) 39-year-old female with 4 days after laparoscopic appendectomy with residual abdominal pain. Mild inflammatory changes and small collection probably will respond well to antibiotics. Patient feels subjectively slightly better over last 24 hours she is getting hungry. My opinion that no surgical intervention currently indicated. Agree with IV antibiotics and observation. Will keep patient n.p.o. for the next 24 hours to ensure there is a positive trend. Consultation Date/Type/Reason Admit Date/Time Date of Consultation: December 12, 2018 Type of Consult Surgical Reason for Consultation Diffuse abdominal pain 3 days after laparoscopic appendectomy at the other institution. Date/Time of Note DATE: 12/12/18 TIME: 10:57 Hx of Present Illness 39-year-old female otherwise healthy while being out of town on Monday developed abdominal pain and was diagnosed with acute appendicitis. Laparoscopic appendectomy was performed on December 08 and patient was discharged home on the same day without additional medical treatment. Patient states that perforated ap pendicitis was found on surgery. The next day patient felt worse with diffuse abdominal pain nausea the pain did not get better over the next day. So yesterday she came to the emergency room. In the emergency room the CT scan was performed that showed some residual inflammatory changes at the appendix site with small collection not amenable for drainage. In addition some inflammatory changes in the abdominal wall consistent with a trocar placement were found. There was no free air and no air in the subcutaneous tissue. White count was found to be slightly elevated up to 11,000. Patient was admitted with IV antibiotics for observation and treatment. Constitutional: no complaints, improved Eyes: no complaints ENT: no complaints Respiratory: no complaints Cardiovascular: no complaints Gastrointestinal: pain, decreased appetite Genitourinary: no complaints Musculoskeletal: no complaints Skin: no complaints Neurologic: no complaints Endocrine: no complaints Lymphatic: no complaints Psychological: no complaints, nl mood/affect Immunologic: no complaints Past Medical History Medical History: no pertinent history Home Meds No Active Prescriptions or Reported Meds Medications Current Medications Ondansetron HCl (Zofran Inj) 4 mg BRIDGE ORDER PRN IV NAUSEA/VOMITING; Start 12/11/18 at 20:30; Stop 12/12/18 at 20:29 Acetaminophen (Tylenol Tab) 650 mg ER BRIDGE PRN PO .MILD PAIN 1-3 OR TEMP; Start 12/11/18 at 20:30; Stop 12/12/18 at 20:29 Sodium Chloride 1,000 ml @ 80 mls/hr [id number] IV Last administered on 12/12/18at 02:13; Admin Dose 80 MLS/HR; Start 12/11/18 at 22:03 IV Flush (NS 3 ml) 3 ml PER PROTOCOL IV ; Start 12/11/18 at 22:30 Acetaminophen (Tylenol Tab) 650 mg Q6H PRN PO .PAIN 1-3 OR TEMP; Start 12/11/18 at 22:30 Docusate Sodium (Colace) 100 mg Q12H PRN PO .CONSTIPATION; Start 12/11/18 at 22:30 Bisacodyl (Dulcolax) 5 mg DAILY PRN PO .CONSTIPATION; Start 12/11/18 at 22:30 Piperacillin Sod/ Tazobactam Sod 100 ml @ 200 mls/hr Q6 IVPB Last administered on 12/12/18at 06:20; Admin Dose 200 MLS/HR; Start 12/12/18 at 00:00 Hydromorphone HCl (Dilaudid) 1 mg Q3H PRN IV SEVERE PAIN LEVEL 7-10 Last administered on 12/12/18at 10:06; Admin Dose 1 MG; Start 12/12/18 at 02:30 Diphenhydramine HCl (Benadryl) 50 mg Q4H PRN IV ITCHING Last administered on 12/12/18at 08:30; Admin Dose 50 MG; Start 12/12/18 at 03:00 Allergies: Coded Allergies: Iodinated Contrast- Oral and IV Dye (Verified Allergy, Severe, 11/30/18) iodine (Verified Allergy, Intermediate, 11/30/18) ketorolac (Verified Allergy, Unknown, 11/30/18) metoclopramide (Verified Adverse Reaction, Intermediate, 12/01/18) morphine (Verified Adverse Reaction, Mild, 11/30/18) rash Uncoded Allergies: IV CONTRAST (Allergy, Unknown, 11/30/18) Past Surgical History Past Surgical Hx: appendectomy, cholecystectomy Family History Significant Family History: no pertinent family hx Social History Alcohol Use: none Smoking Status: Never smoker Drug Use: none Exam/Review of Systems Exam Vitals Vital Signs Date Temp Pulse Resp B/P (MAP) Pulse Ox O2 O2 Flow FiO2 Time Delivery Rate 12/12/18 98.7 68 17 101/50 95 Room Air 07:27 (67) Intake and Output 12/11/18 12/11/18 12/12/18 1515:00 23:00 07:00 IntakeIntake Total 420 ml BalanceBalance 420 ml Constitutional: alert, oriented, well developed Psych: no complaints, nl mood/affect Head: normocephalic, atraumatic Eyes: nl conjunctiva, EOMI, nl lids, nl sclera, PERRL ENMT: nl external ears & nose, nl lips & teeth, nl nasal mucosa & septum Neck: supple, non-tender Respiratory: clear to auscultation, normal air movement Cardiovascular: regular rate and rhythm, nl pulses Gastrointestinal: other (The abdomen is soft abuse there is a diffuse tenderness mostly at the incision site in the right lower quadrant. There is no evidence of redness cellulitis or crepitation of the anterior abdominal wall. There is mild rebound in the right lower quadrant.) Musculoskeletal: nl extremities to inspection, nl gait and stance Extremities: normal pulses Neurological: WELCOME WAGON HOST/HOSTESS II-XII intact, nl mental status, nl speech, nl strength Skin: nl turgor; No rash or lesions Lymph: nl lymph nodes Results Result Diagram: 12/12/18 0436 12/12/18 0435 Results 24hrs Laboratory Tests Test 12/11/18 17:24 12/11/18 19:51 12/12/18 04:35 12/12/18 04:36 White Blood Count 10.0 # 7.9 # Red Blood Count 3.98 L 3.55 L Hemoglobin 11.0 L 9.9 L Hematocrit 34.6 L 31.4 L Mean Corpuscular 86.9 88.5 Volume Mean Corpuscular 27.6 L 27.9 L Hemoglobin Mean Corpuscular 31.8 L 31.5 L Hemoglobin Concent Red Cell 14.5 14.6 H Distribution Width Platelet Count 402 # 359 Mean Platelet Volume 9.3 9.5 Immature 0.400 0.300 Granulocytes % Neutrophils % 74.6 67.8 Lymphocytes % 15.5 22.1 Monocytes % 6.9 6.8 Eosinophils % 2.0 2.5 Basophils % 0.6 0.5 Nucleated Red Blood 0.0 0.0 Cells % Immature 0.040 H 0.020 Granulocytes # Neutrophils # 7.5 5.4 Lymphocytes # 1.6 1.8 Monocytes # 0.7 0.5 Eosinophils # 0.2 0.2 Basophils # 0.1 0.0 Nucleated Red Blood 0.0 0.0 Cells # Prothrombin Time 12.3 Prothrombin Time 1.0 Ratio INR International 0.90 Normalized Ratio Activated 26.0 Partial Thromboplast Time Urine Color STRAW Urine Clarity CLEAR Urine pH 7.0 Urine Specific 1.006 [place] Urine Ketones NEGATIVE Urine Nitrite NEGATIVE Urine Bilirubin NEGATIVE Urine Urobilinogen NEGATIVE Urine Leukocyte NEGATIVE Esterase Urine Hemoglobin NEGATIVE Urine Glucose NEGATIVE Urine Total Protein NEGATIVE Sodium Level 138 137 Potassium Level 4.3 3.7 Chloride Level 105 108 Carbon Dioxide Level 25 24 Anion Gap 8 5 Blood Urea Nitrogen 8 8 Creatinine 0.67 0.69 Est Glomerular > 60 > 60 Filtrat Rate mL/min Glucose Level 108 90 Calcium Level 9.0 8.4 Total Bilirubin 0.3 0.5 Direct Bilirubin 0.00 0.00 Indirect Bilirubin 0.3 0.5 Aspartate Amino 22 22 Transf (AST/SGOT) Alanine 24 22 Aminotransferase (AL T/SGPT) Alkaline Phosphatase 90 77 Total Protein 7.7 6.4 # Albumin 4.1 3.5 Globulin 3.60 H 2.90 Albumin/Globulin 1.13 1.20 Ratio Lipase 80 POC Beta HCG, NEGATIVE Qualitative Magnesium Level 1.8 Triglycerides Level 67 Cholesterol Level 186 LDL Cholesterol, 119 Calculated HDL Cholesterol 54 Cholesterol/HDL 3.4 Ratio Thyroid Stimulating 2.480 Hormone (TSH) Hemoglobin A1c 5.4 Medications Medication Current Medications Ondansetron HCl (Zofran Inj) 4 mg BRIDGE ORDER PRN IV NAUSEA/VOMITING; Start 12/11/18 at 20:30; Stop 12/12/18 at 20:29 Acetaminophen (Tylenol Tab) 650 mg ER BRIDGE PRN PO .MILD PAIN 1-3 OR TEMP; Start 12/11/18 at 20:30; Stop 12/12/18 at 20:29 Sodium Chloride 1,000 ml @ 80 mls/hr [id number] IV Last administered on 12/12/18at 02:13; Admin Dose 80 MLS/HR; Start 12/11/18 at 22:03 IV Flush (NS 3 ml) 3 ml PER PROTOCOL IV ; Start 12/11/18 at 22:30 Acetaminophen (Tylenol Tab) 650 mg Q6H PRN PO .PAIN 1-3 OR TEMP; Start 12/11/18 at 22:30 Docusate Sodium (Colace) 100 mg Q12H PRN PO .CONSTIPATION; Start 12/11/18 at 22 :30 Bisacodyl (Dulcolax) 5 mg DAILY PRN PO .CONSTIPATION; Start 12/11/18 at 22:30 Piperacillin Sod/ Tazobactam Sod 100 ml @ 200 mls/hr Q6 IVPB Last administered on 12/12/18at 06:20; Admin Dose 200 MLS/HR; Start 12/12/18 at 00:00 Hydromorphone HCl (Dilaudid) 1 mg Q3H PRN IV SEVERE PAIN LEVEL 7-10 Last administered on 12/12/18at 10:06; Admin Dose 1 MG; Start 12/12/18 at 02:30 Diphenhydramine HCl (Benadryl) 50 mg Q4H PRN IV ITCHING Last administered on 12/12/18at 08:30; Admin Dose 50 MG; Start 12/12/18 at 03:00 REMA AVERY MD December 12, 2018 11:04
[2018-12-12 14:45] VITALS: BP 106/59; PULSE 78; RESP 18
--- NOTE | 2018-12-12 17:16 | PN ---
Date/Time of Note Date/Time of Note DATE: 12/12/18 TIME: 17:16 Assessment/Plan VTE Prophylaxis Risk score (from Nsg)>0 risk: 1 SCD applied (from Nsg): Yes Pharmacological prophylaxis: NA/contraindicated (For the) Pharm contraindication: surgical contra Lines/Catheters [facility] (from [facility]): Peripheral IV Assessment/Plan Hospital Course SUBJECTIVE: Remains afebrile. Continues to complain of significant abdominal pain specifically with movement. OBJECTIVE: Physical Exam General: Morbidly obese 39 year-old female lying in bed in no apparent distress. HEENT: Normocephalic, atraumatic. Eyes: Anicteric sclerae, conjunctivae clear. ENT: Nasal septum midline, oral mucosa moist. Neck supple, no JVD noticed. Respiratory: Bilaterally clear breath sounds. No use of accessory muscles of respiration. No adventitious breath sounds. Cardiovascular: S1, S2 heard. Regular rate and rhythm. Abdomen: Soft and nondistended. Steri-Strips over the laparoscopic incision sites. Tenderness to palpation in the periumbilical area on the left side. Bowel sounds positive in all 4 quadrants. Genitourinary: Deferred. Extremities: No cyanosis, no clubbing, no edema. Peripheral pulses palpable. Neurologic: Cranial nerves II through XII grossly intact. The patient is awake, alert, and oriented. Skin: Normal skin turgor. Labs & Vitals per chart ASSESSMENT & PLAN 39-year-old female with comorbidities including obesity [facility] of right lower quadrant abdominal pain and she is status post 3 days appendectomy at an outside facility with CT scan showing inflammatory changes in the surgical bed along with a 1.6 cm fluid collection; no phlegmonous changes in the mid anterior abdominal wall, who was admitted to inpatient setting for further treatment and evaluation. 1. Abdominal pain the patient status post appendectomy wound 12/08/2018 at an outside facility with CT evidence of inflammatory changes and phlegmonous changes. -Status post evaluation by general surgery who recommended antimicrobial t herapy. -Continue n.p.o. -Continue pain control. 2. Morbid obesity. -BMI more than 45 kg/m. -Weight reduction advised. 3. Normocytic anemia. -Etiology unclear. -Monitor H&H closely. 4. Fluids, electrolytes, and nutrition. -N.p.o. -IV fluids. 5. DVT prophylaxis. -Bilateral SCDs. -Ambulation. 6. Plan. -Continue antimicrobials. -Continue n.p.o. -Await clinical improvement. The patient was seen in collaboration with Dr. Post. Result Diagram: 12/12/18 0436 12/12/18 0435 Results 24hrs Laboratory Tests Test 12/11/18 17:24 12/11/18 19:51 12/12/18 04:35 12/12/18 04:36 White Blood Count 10.0 # 7.9 # Red Blood Count 3.98 L 3.55 L Hemoglobin 11.0 L 9.9 L Hematocrit 34.6 L 31.4 L Mean Corpuscular 86.9 88.5 Volume Mean Corpuscular 27.6 L 27.9 L Hemoglobin Mean Corpuscular 31.8 L 31.5 L Hemoglobin Concent Red Cell 14.5 14.6 H Distribution Width Platelet Count 402 # 359 Mean Platelet Volume 9.3 9.5 Immature 0.400 0.300 Granulocytes % Neutrophils % 74.6 67.8 Lymphocytes % 15.5 22.1 Monocytes % 6.9 6.8 Eosinophils % 2.0 2.5 Basophils % 0.6 0.5 Nucleated Red Blood 0.0 0.0 Cells % Immature 0.040 H 0.020 Granulocytes # Neutrophils # 7.5 5.4 Lymphocytes # 1.6 1.8 Monocytes # 0.7 0.5 Eosinophils # 0.2 0.2 Basophils # 0.1 0.0 Nucleated Red Blood 0.0 0.0 Cells # Prothrombin Time 12.3 Prothrombin Time 1.0 Ratio INR International 0.90 Normalized Ratio Activated 26.0 Partial Thromboplast Time Urine Color STRAW Urine Clarity CLEAR Urine pH 7.0 Urine Specific 1.006 [place] Urine Ketones NEGATIVE Urine Nitrite NEGATIVE Urine Bilirubin NEGATIVE Urine Urobilinogen NEGATIVE Urine Leukocyte NEGATIVE Esterase Urine Hemoglobin NEGATIVE Urine Glucose NEGATIVE Urine Total Protein NEGATIVE Sodium Level 138 137 Potassium Level 4.3 3.7 Chloride Level 105 108 Carbon Dioxide Level 25 24 Anion Gap 8 5 Blood Urea Nitrogen 8 8 Creatinine 0.67 0.69 Est Glomerular > 60 > 60 Filtrat Rate mL/min Glucose Level 108 90 Calcium Level 9.0 8.4 Total Bilirubin 0.3 0.5 Direct Bilirubin 0.00 0.00 Indirect Bilirubin 0.3 0.5 Aspartate Amino 22 22 Transf (AST/SGOT) Alanine 24 22 Aminotransferase (AL T/SGPT) Alkaline Phosphatase 90 77 Total Protein 7.7 6.4 # Albumin 4.1 3.5 Globulin 3.60 H 2.90 Albumin/Globulin 1.13 1.20 Ratio Lipase 80 POC Beta HCG, NEGATIVE Qualitative Magnesium Level 1.8 Triglycerides Level 67 Cholesterol Level 186 LDL Cholesterol, 119 Calculated HDL Cholesterol 54 Cholesterol/HDL 3.4 Ratio Thyroid Stimulating 2.480 Hormone (TSH) Hemoglobin A1c 5.4 Exam/Review of Systems Exam Vitals Vital Signs Date Temp Pulse Resp B/P (MAP) Pulse Ox O2 O2 Flow FiO2 Time Delivery Rate 12/12/18 97.9 78 18 106/59 97 Room Air 14:45 (75) Intake and Output 12/11/18 12/11/18 12/12/18 1515:00 23:00 07:00 IntakeIntake Total 420 ml BalanceBalance 420 ml Results Results 24hrs Laboratory Tests Test 12/11/18 17:24 12/11/18 19:51 12/12/18 04:35 12/12/18 04:36 White Blood Count 10.0 # 7.9 # Red Blood Count 3.98 L 3.55 L Hemoglobin 11.0 L 9.9 L Hematocrit 34.6 L 31.4 L Mean Corpuscular 86.9 88.5 Volume Mean Corpuscular 27.6 L 27.9 L Hemoglobin Mean Corpuscular 31.8 L 31.5 L Hemoglobin Concent Red Cell 14.5 14.6 H Distribution Width Platelet Count 402 # 359 Mean Platelet Volume 9.3 9.5 Immature 0.400 0.300 Granulocytes % Neutrophils % 74.6 67.8 Lymphocytes % 15.5 22.1 Monocytes % 6.9 6.8 Eosinophils % 2.0 2.5 Basophils % 0.6 0.5 Nucleated Red Blood 0.0 0.0 Cells % Immature 0.040 H 0.020 Granulocytes # Neutrophils # 7.5 5.4 Lymphocytes # 1.6 1.8 Monocytes # 0.7 0.5 Eosinophils # 0.2 0.2 Basophils # 0.1 0.0 Nucleated Red Blood 0.0 0.0 Cells # Prothrombin Time 12.3 Prothrombin Time 1.0 Ratio INR International 0.90 Normalized Ratio Activated 26.0 Partial Thromboplast Time Urine Color STRAW Urine Clarity CLEAR Urine pH 7.0 Urine Specific 1.006 [place] Urine Ketones NEGATIVE Urine Nitrite NEGATIVE Urine Bilirubin NEGATIVE Urine Urobilinogen NEGATIVE Urine Leukocyte NEGATIVE Esterase Urine Hemoglobin NEGATIVE Urine Glucose NEGATIVE Urine Total Protein NEGATIVE Sodium Level 138 137 Potassium Level 4.3 3.7 Chloride Level 105 108 Carbon Dioxide Level 25 24 Anion Gap 8 5 Blood Urea Nitrogen 8 8 Creatinine 0.67 0.69 Est Glomerular > 60 > 60 Filtrat Rate mL/min Glucose Level 108 90 Calcium Level 9.0 8.4 Total Bilirubin 0.3 0.5 Direct Bilirubin 0.00 0.00 Indirect Bilirubin 0.3 0.5 Aspartate Amino 22 22 Transf (AST/SGOT) Alanine 24 22 Aminotransferase (AL T/SGPT) Alkaline Phosphatase 90 77 Total Protein 7.7 6.4 # Albumin 4.1 3.5 Globulin 3.60 H 2.90 Albumin/Globulin 1.13 1.20 Ratio Lipase 80 POC Beta HCG, NEGATIVE Qualitative Magnesium Level 1.8 Triglycerides Level 67 Cholesterol Level 186 LDL Cholesterol, 119 Calculated HDL Cholesterol 54 Cholesterol/HDL 3.4 Ratio Thyroid Stimulating 2.480 Hormone (TSH) Hemoglobin A1c 5.4 Medications Medication Current Medications Ondansetron HCl (Zofran Inj) 4 mg BRIDGE ORDER PRN IV NAUSEA/VOMITING; Start 12/11/18 at 20:30; Stop 12/12/18 at 20:29 Acetaminophen (Tylenol Tab) 650 mg ER BRIDGE PRN PO .MILD PAIN 1-3 OR TEMP; Start 12/11/18 at 20:30; Stop 12/12/18 at 20:29 Sodium Chloride 1,000 ml @ 80 mls/hr [id number] IV Last administered on 12/12/18at 15:17; Admin Dose 80 MLS/HR; Start 12/11/18 at 22:03 IV Flush (NS 3 ml) 3 ml PER PROTOCOL IV ; Start 12/11/18 at 22:30 Acetaminophen (Tylenol Tab) 650 mg Q6H PRN PO .PAIN 1-3 OR TEMP; Start 12/11/18 at 22:30 Docusate Sodium (Colace) 100 mg Q12H PRN PO .CONSTIPATION; Start 12/11/18 at 22:30 Bisacodyl (Dulcolax) 5 mg DAILY PRN PO .CONSTIPATION; Start 12/11/18 at 22:30 Piperacillin Sod/ Tazobactam Sod 100 ml @ 200 mls/hr Q6 IVPB Last administered on 12/12/18 12:49; Admin Dose 200 MLS/HR; Start 12/12/18 at 00:00 Hydromorphone HCl (Dilaudid) 1 mg Q3H PRN IV SEVERE PAIN LEVEL 7-10 Last administered on 12/12/18 16:40; Admin Dose 1 MG; Start 12/12/18 at 02:30 Diphenhydramine HCl (Benadryl) 50 mg Q4H PRN IV ITCHING Last administered on 12:49; Admin Dose 50 MG; Start 12/12/18 at 03:00 ISAIAH MERINO NP December 12, 2018 17:16
[2018-12-12 19:36] VITALS: BP 113/65; PULSE 65; RESP 18
[2018-12-13] MEDS: PIPER-TAZO 3.375 GM IV (PMX) 100 ML IVPB SCH ×4 (00:33→17:56)
[2018-12-13 02:00] VITALS: BP 117/59; PULSE 73; RESP 18
[2018-12-13] MEDS: HYDROmorphONE 1 MG/ML SYG IV PRN ×3 (02:18→12:50)
[2018-12-13] MEDS: DIPHENHYDRAMINE 50 MG INJ IV PRN ×6 (02:18→23:39)
[2018-12-13] MEDS ORDERED: HYDROmorphONE 2 MG/ML SYG IV ONE ×2 (03:53→06:25)
[2018-12-13] MEDS: SOD CHLORIDE 0.9% 1,000 ML IV SCH ×2 (04:05→21:33)
[2018-12-13 08:30] VITALS: BP 118/65; PULSE 77; RESP 20
--- NOTE | 2018-12-13 13:00 | PN ---
Date/Time of Note Date/Time of Note DATE: 12/13/18 TIME: 12:59 Assessment/Plan VTE Prophylaxis Risk score (from Ns)>0 risk: 2 SCD applied (from Nsg): Yes Pharmacological prophylaxis: NA/contraindicated Pharm contraindication: low risk/ambulating Lines/Catheters [facility] Saline Lock Assessment/Plan Hospital Course SUBJECTIVE: Remains afebrile. Continues to complain of significant abdominal pain specifically with movement. OBJECTIVE: Physical Exam General: Morbidly obese 39 year-old female lying in bed in no apparent distress. HEENT: Normocephalic, atraumatic. Eyes: Anicteric sclerae, conjunctivae clear. ENT: Nasal septum midline, oral mucosa moist. Neck supple, no JVD noticed. Respiratory: Bilaterally clear breath sounds. No use of accessory muscles of respiration. No adventitious breath sounds. Cardiovascular: S1, S2 heard. Regular rate and rhythm. Abdomen: Soft and nondistended. Steri-Strips over the laparoscopic incision sit es. Tenderness to palpation in the periumbilical area on the left side. Bowel sounds positive in all 4 quadrants. Genitourinary: Deferred. Extremities: No cyanosis, no clubbing, no edema. Peripheral pulses palpable. Neurologic: Cranial nerves II through XII grossly intact. The patient is awake, alert, and oriented. Skin: Normal skin turgor. Labs & Vitals per chart ASSESSMENT & PLAN 39-year-old female with comorbidities including obesity who presented to the emergency room complaining of right lower quadrant abdominal pain and she is status post appendectomy at an outside facility on 12/08/[address] scan showing inflammatory changes in the surgical bed along with a 1.6 cm fluid collection; no phlegmonous changes in the mid anterior abdominal wall, who was admitted to inpatient setting for further treatment and evaluation. 1. Abdominal pain the patient status post appendectomy wound 12/08/2018 at an outside facility with CT evidence of inflammatory changes and phlegmonous changes. -Status post evaluation by general surgery who recommended antimicrobial th erapy. -Continue n.p.o. -Continue pain control. 2. Morbid obesity. -BMI more than 45 kg/m. -Weight reduction advised. 3. Normocytic anemia. -Etiology unclear. -Monitor H&H closely. 4. Fluids, electrolytes, and nutrition. -N.p.o. -IV fluids. 5. DVT prophylaxis. -Bilateral SCDs. -Ambulation. 6. Plan. -Continue antimicrobials. -Continue n.p.o. -Await clinical improvement. The patient was seen in collaboration with Dr. Post. Result Diagram: 12/13/18 0543 12/13/18 0522 Results 24hrs Laboratory Tests Test 12/13/18 05:22 12/13/18 05:43 Sodium Level 138 Potassium Level 4.3 Chloride Level 108 Carbon Dioxide Level 22 Anion Gap 8 Blood Urea Nitrogen 6 L Creatinine 0.63 Est Glomerular Filtrat Rate mL/min > 60 Glucose Level 83 Calcium Level 8.7 Phosphorus Level 4.0 Magnesium Level 1.8 C-Reactive Protein 2.8 H White Blood Count 6.6 Red Blood Count 4.04 L Hemoglobin 11.2 L Hematocrit 34.9 L Mean Corpuscular Volume 86.4 Mean Corpuscular Hemoglobin 27.7 L Mean Corpuscular Hemoglobin Concent 32.1 Red Cell Distribution Width 14.4 Platelet Count 374 Mean Platelet Volume 9.5 Immature Granulocytes % 0.300 Neutrophils % 65.9 Lymphocytes % 23.0 Monocytes % 7.0 Eosinophils % 3.2 Basophils % 0.6 Nucleated Red Blood Cells % 0.0 Immature Granulocytes # 0.020 Neutrophils # 4.3 Lymphocytes # 1.5 Monocytes # 0.5 Eosinophils # 0.2 Basophils # 0.0 Nucleated Red Blood Cells # 0.0 Erythrocyte Sedimentation Rate 65 H Exam/Review of Systems Exam Vitals Vital Signs Date Temp Pulse Resp B/P (MAP) Pulse Ox O2 O2 Flow FiO2 Time Delivery Rate 12/13/18 98.1 77 20 118/65 95 08:30 (82) 12/12/18 Room Air 14:45 Intake and Output 12/12/18 12/12/18 12/13/18 1515:00 23:00 07:00 IntakeIntake Total 200 ml 940 ml BalanceBalance 200 ml 940 ml Results Results 24hrs Laboratory Tests Test 12/13/18 05:22 12/13/18 05:43 Sodium Level 138 Potassium Level 4.3 Chloride Level 108 Carbon Dioxide Level 22 Anion Gap 8 Blood Urea Nitrogen 6 L Creatinine 0.63 Est Glomerular Filtrat Rate mL/min > 60 Glucose Level 83 Calcium Level 8.7 Phosphorus Level 4.0 Magnesium Level 1.8 C-Reactive Protein 2.8 H White Blood Count 6.6 Red Blood Count 4.04 L Hemoglobin 11.2 L Hematocrit 34.9 L Mean Corpuscular Volume 86.4 Mean Corpuscular Hemoglobin 27.7 L Mean Corpuscular Hemoglobin Concent 32.1 Red Cell Distribution Width 14.4 Platelet Count 374 Mean Platelet Volume 9.5 Immature Granulocytes % 0.300 Neutrophils % 65.9 Lymphocytes % 23.0 Monocytes % 7.0 Eosinophils % 3.2 Basophils % 0.6 Nucleated Red Blood Cells % 0.0 Immature Granulocytes # 0.020 Neutrophils # 4.3 Lymphocytes # 1.5 Monocytes # 0.5 Eosinophils # 0.2 Basophils # 0.0 Nucleated Red Blood Cells # 0.0 Erythrocyte Sedimentation Rate 65 H Medications Medication Current Medications Sodium Chloride 1,000 ml @ 80 mls/hr [id number] IV Last administered on 12/13/18 04:05; Admin Dose 80 MLS/HR; Start 12/11/18 at 22:03 IV Flush (NS 3 ml) 3 ml PER PROTOCOL IV ; Start 12/11/18 at 22:30 Acetaminophen (Tylenol Tab) 650 mg Q6H PRN PO .PAIN 1-3 OR TEMP; Start 12/11/18 at 22:30 Docusate Sodium (Colace) 100 mg Q12H PRN PO .CONSTIPATION; Start 12/11/18 at 22:30 Bisacodyl (Dulcolax) 5 mg DAILY PRN PO .CONSTIPATION; Start 12/11/18 at 22:30 Piperacillin Sod/ Tazobactam Sod 100 ml @ 200 mls/hr Q6 IVPB Last administered on 12/13/18 12:32; Admin Dose 200 MLS/HR; Start 12/12/18 at 00:00 Hydromorphone HCl (Dilaudid) 1 mg Q3H PRN IV SEVERE PAIN LEVEL 7-10 Last administered on 12/13/18 12:50; Admin Dose 1 MG; Start 12/12/18 at 02:30 Diphenhydramine HCl (Benadryl) 50 mg Q4H PRN IV ITCHING Last administered on 12/13/18 10:48; Admin Dose 50 MG; Start 12/12/18 at 03:00 ISAIAH MERINO NP December 13, 2018 12:59
[2018-12-13 14:56] VITALS: BP 104/60; PULSE 77; RESP 20
[2018-12-13] MEDS ORDERED: HYDROmorphONE 2 MG/ML SYG IV STA (14:59)
--- NOTE | 2018-12-13 15:49 | PN ---
Date/Time of Note Date/Time of Note DATE: 12/13/18 TIME: 15:43 Assessment/Plan Lines/Catheters IV [facility] Type (from [email or web address] Saline Lock Assessment/Plan Chief Complaint/Hosp Course 39-year-old female 5 days after laparoscopic appendectomy at other institution continues to have abdominal pain that increases with time. In spite of the lack any objective signs of infection still feel it will be beneficial to repeat the CT scan to rule out necrotizing fasciitis. Assessment/Plan Abdominal pain after laparoscopic appendectomy. Rule out necrotizing fasciitis. Repeat CT scan stat. Subjective 24 Hr Interval Summary Patient is 6 days after laparoscopic appendectomy at the other institution admitted for abdominal pain. CT scan on admission showed some phlegmonous changes in the wounds as well as in the right lower quadrant consistent with the recent appendectomy. Vitals were stable and white count was low and she was started on antibiotics. However patient is not improving. Patient continues to complain more abdominal pain more on the left side. She remains afebrile with white count down to 6000 from 10,000. Her heart rate is around 70. On the physical exam initially there are no changes on the skin of abdominal wall. Patient however is passing gas and hungry. Constitutional: other (Complaints of increasing left-sided abdominal pain.) Feeding: NPO Pain Control: severe Exam/Review of Systems Vital Signs Vitals Vital Signs Date Temp Pulse Resp B/P (MAP) Pulse Ox O2 O2 Flow FiO2 Time Delivery Rate 12/13/18 98.3 77 20 104/60 95 14:56 (75) 12/12/18 Room Air 14:45 Intake and Output 12/12/18 12/12/18 12/13/18 1515:00 23:00 07:00 IntakeIntake Total 200 ml 940 ml BalanceBalance 200 ml 940 ml Exam Constitutional: alert, oriented, well developed Psych: no complaints, nl mood/affect Head: normocephalic, atraumatic Eyes: nl conjunctiva, EOMI, nl lids, nl sclera ENMT: nl external ears & nose, nl lips & teeth, nl nasal mucosa & septum, mucosa pink and moist Neck: supple, non-tender Respiratory: clear to auscultation, normal air movement Cardiovascular: regular rate and rhythm, nl pulses Gastrointestinal: soft, nl liver, spleen, other (The abdomen is tender in the left lower quadrant around the laparoscopy incision. There is no redness no fluctuation no crepitus no induration of the skin. all incisions looks completely normal.) Musculoskeletal: nl extremities to inspection, nl gait and stance Extremities: normal pulses Neurological: [employer] II-XII intact, nl mental status, nl speech, nl strength Skin: nl turgor, rash or lesions Lymph: nl lymph nodes Results Result Diagram: 12/13/18 0543 12/13/18 0522 REMA AVERY MD December 13, 2018 15:48
[2018-12-13] MEDS ORDERED: ONDANSETRON 4 MG INJ IV PRN ×2 (18:00→18:30)
[2018-12-13] MEDS ORDERED: BARIUM SULF 2% 450 ML BTL (BERRY SMOOTHIE) PO ONE (18:00)
[2018-12-13] MEDS: HYDROmorphONE 2 MG/ML SYG IV PRN ×2 (18:17→21:28)
[2018-12-13 20:05] VITALS: BP 104/53; PULSE 87; RESP 16
[2018-12-14] MEDS: HYDROmorphONE 2 MG/ML SYG IV PRN ×3 (00:42→06:36)
[2018-12-14] MEDS: PIPER-TAZO 3.375 GM IV (PMX) 100 ML IVPB SCH ×3 (00:43→12:00)
[2018-12-14] MEDS: DIPHENHYDRAMINE 50 MG INJ IV PRN ×2 (01:58→06:35)
[2018-12-14 02:00] VITALS: BP 121/71; PULSE 89; RESP 18
[2018-12-14] MEDS: SOD CHLORIDE 0.9% 1,000 ML IV SCH (02:44)
--- NOTE | 2018-12-14 08:38 | EN ---
Date/Time of Note Date/Time of Note DATE: 12/14/18 TIME: 08:32 Event Note Medicine Medicine Event Note Was notified by the charge nurse on [facility] today regarding an incident that has been occurring regarding this patient. There is a person by the name of Elham toscano that has been calling in stating that she is my nurse practitioner and is giving orders on this patient under my name. Orders including Dilaudid. I have requested the charge nurse to cancel any pain medication orders at this time while we investigate this further. There is r clarencerd from the nurses regarding this person calling him to put these orders. Elham Toscano does not work with me or with our hospitalist group. Unsure whether the individual who was calling is actually Elham Toscano and not somebody who is using that person's name. This is concerning that the patient likely has somebody calling the hospital and putting in orders including high- dose narcotic pain meds on the patient's behalf. JESSI DOWNS December 14, 2018 08:38
[2018-12-14] MEDS ORDERED: IBUPROFEN 400 MG TAB PO PRN (11:00)
--- NOTE | 2018-12-14 16:38 | DS ---
Date/Time of Note Date/Time of Note DATE: 12/14/18 TIME: 16:38 Discharge Summary Admission/Discharge Info Admit Date/Time December 13, 2018 at 04:23 Discharge Date/Time Left AGAINST MEDICAL ADVICE Discharge Diagnosis 1. Abdominal pain. Status post appendectomy wound 12/08/2018 at an outside facility with CT evidence of inflammatory changes and phlegmonous changes. 2. Morbid obesity. BMI more than 45 kg/m. 3. Normocytic anemia. 4. Opioid seeking behavior using a second person via outside scam phone calls for making telephone orders stating different providers' names (fake name and real name of providers not on hospital staff). Patient Condition: Guarded Consults 1. Lobo Pratt MD, General Surgery. Procedures CT Abdomen & Pelvis 12/14/2018 IMPRESSION: Mild interval increase in 4.1 x 1.9 cm region of fluid and stranding in the lower left abdominal wall fat, likely related to prior surgical tract. Correlate clinically for superimposed infection. No evidence of subcutaneous emphysema or necrotizing fasciitis. Stable mild stranding and fluid adjacent to the cecum and appendectomy surgical site. No evidence of abscess. CT Abdomen & Pelvis 12/11/2018 IMPRESSION: New inflammatory changes in the surgical bed status post appendectomy along with a 1.6 cm fluid collection. This is not amenable to percutaneous drainage. New phlegmonous changes in the mid anterior abdominal wall to the left of the umbilicus. Hx of Present Illness This is a 39-year-old female with comorbidities including obesity who presented to the emergency room complaining of right lower quadrant abdominal pain and she is status post appendectomy at an outside facility on 12/08/[address] scan showing inflammatory changes in the surgical bed along with a 1.6 cm fluid collection; no phlegmonous changes in the mid anterior abdominal wall, who was admitted to inpatient setting for further treatment and evaluation. Hospital Course The patient was started on antimicrobial therapy. A general surgery consult was obtained. General surgery evaluated the patient and recommended antimicrobial therapy and conservative management. The patient had no leukocytosis or febrile illness during the hospital course. The patient's ESR was elevated and C- reactive protein was elevated too. The patient underwent a repeat CT scan on 12/14/2018 that was showing mild interval increase in the region of fluid and stranding in the lower left abdominal wall fat. Meanwhile, the patient has been using a second person to make phone calls in the name of providers not on the patient's for ordering IV opioids and IV Benadryl both in the ER and also in the inpatient setting. Once the patient was confronted about this, she refused to stay in the hospital and left the hospital. Both hospital administration and risk management was informed about the patient's behavior. In the emergency room, the patient used to a second person to call in IV Dilaudid and in the inpatient setting, the patient used a different provider's name to call in Dilaudid orders to the patient's RN. The patient also used a second person to make a scam call to delay her repeat CT scan in the form of a telephone order. At this time I would like to thank for seeing the patient and providing clinical recommendations. The patient was seen in collaboration with Dr. Post. Home Meds No Active Prescriptions or Reported Meds Follow-up Plan No follow-up plan could be confirmed since the patient left the hospital AGAINST MEDICAL ADVICE. Primary Care Provider Care Physician No Primary Time spent on discharge: < 30 minutes Pending Labs Laboratory Tests Test 12/14/18 06:20 White Blood Count 8.0 10^3/ul (4.8-10.8) Red Blood Count 4.23 10^6/ul (4.20-5.40) Hemoglobin 11.6 g/dl (12.0-16.0) Hematocrit 36.5 % (37.0-47.0) Mean Corpuscular Volume 86.3 fl (82.0-101.0) Mean Corpuscular Hemoglobin 27.4 pg (29.0-33.0) Mean Corpuscular Hemoglobin Concent 31.8 g/dl (32.0-37.0) Red Cell Distribution Width 14.2 % (11.5-14.5) Platelet Count 394 10^3/UL (140-415) Mean Platelet Volume 9.4 fl (7.4-10.4) Immature Granulocytes % 0.300 % (0.001-0.429) Neutrophils % 68.9 % (39.0-77.0) Lymphocytes % 20.0 % (15.0-51.0) Monocytes % 7.7 % (0.0-11.0) Eosinophils % 2.5 % (0.0-7.0) Basophils % 0.6 % (0.0-2.0) Nucleated Red Blood Cells % 0.0 /100WBC (0.0-0.0) Immature Granulocytes # 0.020 10^3/ul (0.0-0.031) Neutrophils # 5.5 10^3/ul (1.6-7.5) Lymphocytes # 1.6 10^3/ul (0.8-2.9) Monocytes # 0.6 10^3/ul (0.3-0.9) Eosinophils # 0.2 10^3/ul (0.0-0.5) Basophils # 0.1 10^3/ul (0.0-0.1) Nucleated Red Blood Cells # 0.0 10^3/ul (0.0-0.0) Sodium Level 140 mmol/L (135-144) Potassium Level 4.0 mmol/L (3.5-5.1) Chloride Level 106 mmol/L (97-110) Carbon Dioxide Level 26 mmol/L (21-31) Anion Gap 8 (5-13) Blood Urea Nitrogen 6 mg/dl (7-20) Creatinine 0.72 mg/dl (0.44-1.00) Est Glomerular Filtrat Rate mL/min > 60 mL/min (>60) Glucose Level 115 mg/dl (70-220) Calcium Level 9.2 mg/dl (8.4-10.2) Phosphorus Level 3.9 mg/dl (2.5-4.9) Magnesium Level 1.8 mg/dl (1.7-2.5) ISAIAH MERINO NP December 14, 2018 16:38
== END 2018-12-14 15:45 | disposition left against medical advice (07) | DRG 394 ==
LOC: FTE 16:08 → 2NE 20:25 → OBSVTOIN 12-13 04:23
PROVIDERS: ADMIT Family Medicine; ATTEND Family Medicine
DX: K91.89 Other postprocedural complications and disorders of digestive system (principal); Z68.42 Body mass index [BMI] 45.0-49.9, adult; R10.31 Right lower quadrant pain; E66.01 Morbid (severe) obesity due to excess calories; D64.9 Anemia, unspecified; Z76.5 Malingerer [conscious simulation]; Y83.6 Removal of other organ (partial) (total) as the cause of abnormal reaction of the patient, or of later complication, without mention of misadventure at the time of the procedure
CPT/HCPCS: 36415; 74176; 80048; 80053; 80061; 81003; 81025; 83036; 83690; 83735; 84100; 84443; 85025; 85610; 85651; 85730; 86140; 87081; 96374; 96375; G0378; J1170; J1200; J2270; J2405; J2543; J7030